=== PATIENT | female | born 1980 | race Caucasian/White ===

== ENCOUNTER 2017-04-20 09:51 | Outpatient (RCR) | payer OTHER ==
[~2017-04-20 09:51] MED LIST: ALPR.25T PO; AMOX500C2 PO; ATEN50TA PO; ATRV10T PO; FAMO20TA5 PO; FLC150T PO; HYDR1TAB75 PO; IBP800T PO; LISI1TAB6 PO; LISI20TA PO; LOVA20TA2 PO; MTF500T PO; OMEP-10 PO; OMG1KC PO; ONDA8TAB13 PO; OXYC-272 PO; PHEN200T27 PO; PNT40TEC PO; PREN1TAB14 PO; SULF-222 PO; TRAM50TA2 PO
[2017-04-20] MEDS ORDERED: BETAMETHASONE ACE/NA PHOS 6 MG/ML (CELESTONE SOLUSPAN) ONE (10:06)
[2017-04-20 10:13] VITALS: BP 140/89
[2017-04-20] MEDS ORDERED: BETAMETHASONE ACE/NA PHOS 6 MG/ML (CELESTONE SOLUSPAN) IM SCH (10:30)
[2017-04-20] MEDS ORDERED: METH250T PO (10:32)
[2017-04-20] MEDS ORDERED: PREN1TAB86 PO (10:32)
[2017-04-20] MEDS ORDERED: FOLI1TAB24 PO (10:32)
[2017-04-21] MEDS ORDERED: BETAMETHASONE ACE/NA PHOS 6 MG/ML (CELESTONE SOLUSPAN) IM NR (12:43)
[2017-04-21] MEDS ORDERED: BETAMETHASONE ACE/NA PHOS 6 MG/ML (CELESTONE SOLUSPAN) ONE (12:47)
== END 2017-04-21 13:05 | disposition home or self-care (01) ==
LOC: WSo 09:51
PROVIDERS: ATTEND Obstetrics & Gynecology
DX: O60.00 Preterm labor without delivery, unspecified trimester (principal); O30.049 Twin pregnancy, dichorionic/diamniotic, unspecified trimester
CPT/HCPCS: 96372

== ENCOUNTER → 2017-04-27 | Outpatient (CLI) | payer OTHER ==
[~2017-04-27] MED LIST changes: +DOCU100C37 PO; +FOLI1TAB24 PO; +IBUP-1780 PO; +METH250T PO; +OXYC-465 PO; +PREN1TAB86 PO
[2017-04-27 11:52] LABS: PROTEIN/CREATININE RATIO 0.33
== END ==
LOC: MERGE 11:30 → LABNPT 11:30
PROVIDERS: ATTEND Obstetrics & Gynecology
DX: O28.8 Other abnormal findings on antenatal screening of mother (principal)
CPT/HCPCS: 82570; 84156

== ENCOUNTER → 2017-04-30 | Outpatient (CLI) | payer OTHER, MEDICAID ==
[2017-04-30 10:40] LABS: PROTEIN/CREATININE RATIO 0.41
== END ==
LOC: LABNPT 10:18
PROVIDERS: ATTEND Obstetrics & Gynecology
DX: O28.8 Other abnormal findings on antenatal screening of mother (principal)
CPT/HCPCS: 82570; 84156

== ENCOUNTER 2017-05-04 10:25 | Inpatient (IN) | payer OTHER ==
[2017-05-04] VITALS (49 sets, daily range): BP systolic 126–199; BP diastolic 72–113
[~2017-05-04] VITALS: Ht 162.6 cm; Wt 96.6 kg
[~2017-05-04 10:25] MED LIST changes: -DOCU100C37 PO; -IBUP-1780 PO; -OXYC-465 PO
--- OUTSIDE RECORDS SUMMARY | 2017-05-04 10:39 | XMS REPORT | Continuity of Care Document ---
Author Author [facility] Organization [facility] Address Unknown Phone Unavailable Allergies Active Description Code Type Severity Reaction Onset Reported/Identified Relationship to Patient Clinical Status Yes No Known Drug Allergies [id number] Drug Allergy Unknown N/ A 05/14/2008 Medications Problems Date Dx Coded Attending Type Code Diagnosis Diagnosed By 09/20/1304 MICAH ZIMMERMAN MD, Ot O30.049 TWIN , DICHORIONIC/ DIAMNIOTIC, 09/20/1304 MICAH ZIMMERMAN MD, Ot O60.00 LABOR WITHOUT DELIVERY, UNSPECIF 05/28/2014 BOBBI VELASQUEZ Ot 599.0 URIN TRACT INFECTION NOS 05/28/2014 BOBBI VELASQUEZ Ot 787.01 NAUSEA WITH VOMITING 05/28/2014 BOBBI VELASQUEZ Ot 789.09 ABDOMINAL PAIN, OTHER SPECIFIED SITE 02/12/2015 MICAH ZIMMERMAN MD Ot 617.2 TUBAL ENDOMETRIOSIS 02/12/2015 MICAH ZIMMERMAN MD Ot 620.8 02/12/2015 MICAH ZIMMERMAN MD Ot 621.0 POLYP OF CORPUS UTERI 02/12/2015 MICAH ZIMMERMAN MD Ot 626.8 MENSTRUAL DISORDER NEC 04/09/2015 MICAH ZIMMERMAN MD Ot 285.9 04/09/2015 MICAH ZIMMERMAN MD Ot 625.8 04/09/2015 MICAH ZIMMERMAN MD, Ot V72.63 04/09/2015 MICAH ZIMMERMAN MD, Ot V74.8 06/10/2015 MICAH ZIMMERMAN MD Ot 285.9 06/10/2015 MICAH ZIMMERMAN MD Ot 625.8 06/10/2015 MICAH ZIMMERMAN MD, Ot V72.63 06/10/2015 MICAH ZIMMERMAN MD Ot V74.8 10/15/2015 BRUNA PETERSON, AMANUEL Ramos Ot J06.9 ACUTE UPPER RESPIRATORY INFECTION, UNSPE 10/15/2015 BRUNA PETERSON, AMANUEL Ramos Ot R50.9 FEVER, UNSPECIFIED 10/15/2015 ELSIE PETERSON, MICAH Mcpherson Ot 285.9 10/15/2015 MICAH ZIMMERMAN MD Ot 625.8 10/15/2015 MICAH ZIMMERMAN MD Ot V72.63 10/15/2015 MICAH ZIMMERMAN MD Ot V74.8 10/15/2015 MICAH ZIMMERMAN MD Ot 285.9 10/15/2015 MICAH ZIMMERMAN MD Ot 625.8 10/15/2015 MICAH ZIMMERMAN MD Ot V72.63 10/15/2015 MICAH ZIMMERMAN MD Ot V74.8 04/20/2017 MICAH ZIMMERMAN MD Ot 285.9 ANEMIA NOS 04/20/2017 MICAH ZIMMERMAN MD Ot 625.8 FEM GENITAL SYMPTOMS NEC 04/20/2017 MICAH ZIMMERMAN MD Ot V72.63 PRE-PROCEDURAL LABORATORY EXAMINATION 04/20/2017 MICAH ZIMMERMAN MD Ot V74.8 SCREEN-BACTERIAL DIS NEC 05/01/2017 MICAH ZIMMERMAN MD Ot O28.8 OTHER ABNORMAL FINDINGS ON SCR Procedures Results Test Result Range Urine protein/creatinine mass ratio - 04/30/17 10:00 Urine protein measurement (mass/volume) 34 mg/dL 6-12 Urine creatinine measurement (mass/volume) 82 mg/dL 30-125 Urine protein/creatinine mass ratio 0.41 NRG Encounters ACCT No. Visit Date/Time Discharge Status Pt. Type Provider Facility Loc./Unit Complaint [id number] 04/20/2017 09:51:00 2016 13:05:00 DIS Outpatient MICAH ZIMMERMAN MD [facility] WSo TWINS PTL [id number] 10/15/2015 12:44:00 2014 13:50:00 DIS Emergency AMANUEL MCFARLAND MD [facility] ER FEVER [id number] 02/12/2015 11:40:00 2014 17:25:00 DIS [facility] [id number] 02/05/2015 09:09:00 2014 23:59:59 CLS Outpatient MICAH ZIMMERMAN MD [facility] PREOP PELVIC MASS [id number] 05/27/2014 19:45:00 2013 00:06:00 DIS Emergency BOBBI VELASQUEZ [facility] ER VOMITING,DIARRHEA [id number] 04/30/2017 14:14:00 Document Registration [id number] 04/30/2017 10:18:00 ACT Outpatient MICAH ZIMMERMAN MD [facility] LABNPT OTHER ABNORMAL FINDINGS ON SCREENING
[2017-05-04] MEDS ORDERED: D5 LR IV SOLUTION 1,000 ML IV SCH (10:40)
[2017-05-04] MEDS ORDERED: AMPICILLIN INJECTION 2,000 MG in NS (IVPB) 50 ML IV SCH (10:40)
[2017-05-04 11:15] LABS: BASOPHILS % (AUTO) 1 % (0-10); EOSINOPHILS # (AUTO) 0.1 10^3/uL (0.0-0.3); EOSINOPHILS % (AUTO) 2 % (0-10); LYMPHOCYTES # (AUTO) 1.4 X 10^3 (1.0-4.0); LYMPHOCYTES % (AUTO) 22 % (12-44); MEAN CORPUSCULAR HEMOGLOBIN 24 PG (25-34); MEAN CORPUSCULAR HGB CONC 31 G/DL (32-36); MEAN CORPUSCULAR VOLUME 78 FL (80-99); MEAN PLATELET VOLUME 11.3 FL (7.4-10.4); MONOCYTES # (AUTO) 0.4 X 10^3 (0.0-1.0); MONOCYTES % (AUTO) 6 % (0-12); NEUTROPHILS # (AUTO) 4.5 X 10^3 (1.8-7.8); NEUTROPHILS % (AUTO) 70 % (42-75); PLATELET COUNT 234 10^3/uL (130-400); RED BLOOD COUNT 4.09 10^6/uL (4.35-5.85); RED CELL DISTRIBUTION WIDTH 15.1 % (10.0-14.5); WHITE BLOOD COUNT 6.4 10^3/uL (4.3-11.0)
[2017-05-04 11:54] LABS: ALANINE AMINOTRANSFERASE 15 U/L (0-55); ALBUMIN 3.1 GM/DL (3.2-4.5); ANION GAP 11 MMOL/L (5-14); ASPARTATE AMINO TRANSFERASE 14 U/L (5-34); BILIRUBIN,TOTAL 0.3 MG/DL (0.1-1.0); BLOOD UREA NITROGEN 6 MG/DL (7-18); BUN/CREATININE RATIO 10; CALCIUM 8.5 MG/DL (8.5-10.1); CARBON DIOXIDE 18 MMOL/L (21-32); CHLORIDE 105 MMOL/L (98-107); CREATININE SERUM 0.61 MG/DL (0.60-1.30); GFR ESTIMATED > 60; GLUCOSE 132 MG/DL (70-105); POTASSIUM 3.7 MMOL/L (3.6-5.0); SODIUM 134 MMOL/L (135-145); TOTAL PROTEIN 6.4 GM/DL (6.4-8.2); URIC ACID 6.2 MG/DL (2.6-7.2)
[2017-05-04] MEDS ORDERED: SUFENTA 0.6MCG/ML BUPIVA 0.125 100 ML ONE (13:09)
[2017-05-04] MEDS ORDERED: BUPIVACAINE 0.25% 30 ML (SENSORCAINE) VIAL ONE (13:29)
[2017-05-04] MEDS ORDERED: fentaNYL INJECTION 100 MCG/2 ML AMP ONE (13:29)
[2017-05-04] MEDS ORDERED: CATHETER FLUSH 10 ML SYR IV SCH (14:00)
[2017-05-04] MEDS ORDERED: OXYTOCIN/NORMAL SALINE 500 ML IV SCH ×2 (14:34→15:48)
[2017-05-04] MEDS ORDERED: AMPICILLIN INJECTION 1,000 MG in NS (IVPB) 50 ML IV SCH (14:45)
--- NOTE | 2017-05-04 15:46 | History & Physical ---
History and Physical Date Seen by Provider: May 04, 2017 Time Seen by Provider: 15:47 Di/Di twin gestation at 34-5/7 week gestation. Been followed for high blood pressure and today her blood pressure 165/105 with 1+ proteinuria. Urine protein creatinine ratio was 1.0. At labor and delivery her blood pressures have been persistent at the 160s although having put her now at bed rest her blood pressures have come down 150.. Patient was found to be isabel and was 3 cm dilated. She has continued to contract and after admission and has continued to contract and with increased bigger to the point where she was asking thousand for pain. This is complicated by gestational diabetes that has been Controlled with metformin. she has been on Aldomet for her elevated blood blood pressures throughout as well. Patient was sent to labor and delivery from my clinic. After receipt of the labs and seeing that her blood pressure was elevated and decision made to go ahead with facilitating delivery however she was found also now to be in labor her cervix progressed to 7 cm. She had does now have an epidural. She was started on ampicillin for GBS prophylaxis. Surgery iatrogenically anesthesia is aware of a potential vaginal delivery of twins. Plan for delivery in the operating room with a double set up. allergies are none Medications include Aldomet 250 twice a day Metformin 500 twice a day Folic acid Atarax when necessary for restless leg vitamins Past medical history, past surgical history, obstetric history, family history, and social histories are per the antepartum record HEENT exam is normal Neck is supple without lymphadenopathy no thyromegaly Abdomen is gravid soft nontender nondistended the fundal height has been over 50 cm secondary to the twins. Extremities show no clubbing or cyanosis however there is fairly notable pretibial pitting edema. Patient DTRs are somewhat elevated over her baseline at 3 over 4 pelvic exam in clinic showed a cervix almost 3 cm dilated and 70 percent effaced. - Von probably half hour to 45 minutes ago was 3-1/2 cm and 70 rate percent effaced - most recent exam in the last 10 minutes was 7 cm 100 percent with a bulging bag it was ruptured releasing clear amniotic fluid. The presenting part was vertex. On ultrasound this week both fetuses were vertex monitor shows contractions every 2-3 minutes. heart rates are normal for both fetuses Laboratory Tests 05/04/17 10:57 Laboratory Tests Test 05/04/17 10:40 05/04/17 10:57 7/14/17 14:06 Range/Units Urine Protein 142 H 6-12 MG/DL Urine Creatinine 142 H 30-125 MG/DL Urine Protein/Creatinine Ratio 1.00 White Blood Count 6.4 4.3-11.0 10^3/uL Red Blood Count 4.09 L 4.35-5.85 10^6/uL Hemoglobin 9.9 L 11.5-16.0 G/DL Hematocrit 32 L 35-52 % Mean Corpuscular Volume 78 L 80-99 FL Mean Corpuscular Hemoglobin 24 L 25-34 PG Mean Corpuscular Hemoglobin Concent 31 L 32-36 G/DL Red Cell Distribution Width 15.1 H 10.0-14.5 % Platelet Count 234 130-400 10^3/uL Mean Platelet Volume 11.3 H 7.4-10.4 FL Neutrophils (%) (Auto) 70 42-75 % Lymphocytes (%) (Auto) 22 12-44 % Monocytes (%) (Auto) 6 0-12 % Eosinophils (%) (Auto) 2 0-10 % Basophils (%) (Auto) 1 0-10 % Neutrophils # (Auto) 4.5 1.8-7.8 X 10^3 Lymphocytes # (Auto) 1.4 1.0-4.0 X 10^3 Monocytes # (Auto) 0.4 0.0-1.0 X 10^3 Eosinophils # (Auto) 0.1 0.0-0.3 10^3/uL Basophils # (Auto) 0.0 0.0-0.1 10^3/uL Sodium Level 134 L 135-145 MMOL/L Potassium Level 3.7 3.6-5.0 MMOL/L Chloride Level 105 98-107 MMOL/L Carbon Dioxide Level 18 L 21-32 MMOL/L Anion Gap 11 5-14 MMOL/L Blood Urea Nitrogen 6 L 7-18 MG/DL Creatinine 0.61 0.60-1.30 MG/DL Estimat Glomerular Filtration Rate > 60 BUN/Creatinine Ratio 10 Glucose Level 132 H 70-105 MG/DL Uric Acid 6.2 2.6-7.2 MG/DL Calcium Level 8.5 8.5-10.1 MG/DL Total Bilirubin 0.3 0.1-1.0 MG/DL Aspartate Amino Transf (AST/SGOT) 14 5-34 U/L Alanine Aminotransferase (ALT/SGPT) 15 0-55 U/L Alkaline Phosphatase 169 H 40-136 U/L Lactate Dehydrogenase 168 125-220 U/L Total Protein 6.4 6.4-8.2 GM/DL Albumin 3.1 L 3.2-4.5 GM/DL Glucometer 96 70-110 MG/DL Assessment and plan 34-5/7 weeks gestation in active labor now being augmented with Pitocin Gestational diabetes on metformin - last blood sugar was 96 PIH now with superimposed preeclampsia with blood levels that the severe level labor Dichorionic diamniotic twins Patient was admitted and started on silicone for GBS prophylaxis secondary to prematurity with no recent GBS culture result. GBS culture was obtained in my clinic and is pending on this date. Patient has been allowed an epidural for pain management Blood sugars are checked hourly and have been appropriate Patient is being allowed trial of labor she has had 2 vaginal deliveries previously anticipation is for vaginal delivery. Both twins were found to be vertex on ultrasound 4 days ago. Delivery will be accomplished in the operating room under double setup with saw superintendent anesthesia and surgery available twin with PIH/superimposed preeclampsia/gestational diabetes/ labor Allergies and Home Medications Allergies Coded Allergies: No Known Drug Allergies (Verified , 05/14/08) Home Medications Folic Acid 1 Mg Tablet, 1 MG PO DAILY, (Reported) Metformin Hcl 500 Mg Tablet, 500 MG PO BID, (Reported) Methyldopa 250 Mg Tablet, 250 MG PO BID, (Reported) Vit W-Ca,Fe,FA(<1 mg) 1 Each Tablet, 1 EACH PO DAILY, (Reported) MICAH ZIMMERMAN MD May 04, 2017 3:46 pm
[2017-05-04] MEDS ORDERED: ONDANSETRON 4 MG/2 ML (SDV) Z0FRAN IVP PRN (16:00)
[2017-05-04] MEDS ORDERED: BENZOCAINE/MENTHOL (DERMOPLAST) 56 ML CAN TP PRN (16:00)
[2017-05-04] MEDS ORDERED: oxyCODONE/APAP 10/325MG (PERCOCET 10) TABLET PO PRN (16:00)
[2017-05-04] MEDS ORDERED: KETOROLAC 30 MG/ML VIAL IV SCH (16:00)
[2017-05-04] MEDS ORDERED: TETANUS,DIPTH,PERTUSS P/F (BOOSTRIX) 0.5 ML VIAL IM ONE (16:00)
[2017-05-04] MEDS ORDERED: MEASLES,MUMPS,RUBELLA 1 EA INJ SC ONE (16:00)
[2017-05-04] MEDS ORDERED: LIDOCAINE/EPI 1%-1:200,000 (XYLOCAINE) 30 ML VIAL ONE (16:09)
[2017-05-04] MEDS ORDERED: LACTATED RINGERS 1,000 ML IV ONE ×2 (17:40)
[2017-05-04] MEDS ORDERED: ONDANSETRON 4 MG/2 ML (SDV) Z0FRAN IV PRN (17:45)
[2017-05-04] MEDS ORDERED: NALOXONE 0.4 MG/ML 1 ML (NARCAN) VIAL IV PRN (17:45)
[2017-05-04] MEDS ORDERED: EPIDURAL (SUFENTA 0.6MCG/ML BUPIVA 0.125%) 100 ML BAG EPI PRN (17:45)
[2017-05-05 04:46] VITALS: BP 148/98
[2017-05-05] MEDS ORDERED: IBUPROFEN 800 MG (MOTRIN) TAB PO ONE ×2 (05:04→09:43)
[2017-05-05] MEDS: IBUPROFEN 800 MG (MOTRIN) TAB PO SCH ×3 (05:15→20:19)
--- NOTE | 2017-05-05 09:19 | Progress Note-Standard ---
Standard Progress Note Progress Notes/Assess & Plan Date Seen by Provider: May 05, 2017 Time Seen by Provider: 09:18 Progress/Assessment & Plan this patient is without complaint. She is ambulating, voiding, tolerating by mouth well, has good pain control. Vital Signs Date Time Temp Pulse Resp B/P (MAP) Pulse Ox O2 Delivery O2 Flow Rate FiO2 05/05/17 04:46 98.4 78 16 148/98 97 Room Air 05/04/17 23:00 98.4 84 18 137/87 98 Room Air 05/04/17 22:40 83 18 139/90 Room Air 05/04/17 21:55 72 18 144/100 Room Air 05/04/17 21:40 74 18 139/92 Room Air 05/04/17 21:20 98.8 65 18 156/94 Room Air 05/04/17 21:00 78 18 132/85 Room Air 05/04/17 20:40 71 18 151/85 Room Air 05/04/17 20:24 76 18 143/95 Room Air 05/04/17 20:09 69 18 154/98 Room Air 05/04/17 19:54 98.2 71 18 147/96 Room Air 05/04/17 19:40 70 18 139/92 Room Air 05/04/17 18:59 110 22 166/92 Room Air 05/04/17 18:42 100 22 199/109 Room Air 05/04/17 18:30 87 22 182/106 98 Room Air 05/04/17 18:15 88 22 167/108 97 Room Air 05/04/17 18:00 110 18 137/89 100 Room Air 05/04/17 17:45 98.6 70 18 162/102 100 Non Rebreather 15.00 05/04/17 17:30 82 18 172/113 100 Non Rebreather 15.00 05/04/17 17:15 67 18 161/103 100 Non Rebreather 15.00 05/04/17 17:00 98.0 70 18 149/113 100 Non Rebreather 15.00 05/04/17 16:45 73 18 142/112 99 Room Air 05/04/17 16:30 72 18 162/111 98 Room Air 05/04/17 16:15 72 18 165/111 98 Room Air 05/04/17 16:00 81 18 161/97 98 Room Air 05/04/17 15:45 78 18 167/98 99 Room Air 05/04/17 15:30 71 18 150/84 98 Room Air 05/04/17 15:15 97.1 81 18 167/100 99 Room Air 05/04/17 14:59 67 18 136/86 97 Room Air 05/04/17 14:53 71 18 130/81 97 Room Air 05/04/17 14:47 71 18 126/72 98 Room Air 05/04/17 14:43 76 18 142/90 98 Room Air 05/04/17 14:38 68 18 138/92 98 Room Air 05/04/17 14:32 69 18 137/92 98 Room Air 05/04/17 14:28 74 18 157/98 99 Room Air 05/04/17 14:22 62 18 152/98 98 Room Air 05/04/17 14:18 81 18 139/89 98 Room Air 05/04/17 14:14 71 18 140/90 97 Room Air 05/04/17 14:08 73 18 144/94 97 Room Air 05/04/17 14:02 72 18 145/89 97 Room Air 05/04/17 13:59 77 18 150/87 98 Room Air 05/04/17 13:52 86 18 142/93 97 Room Air 05/04/17 13:47 71 18 152/98 99 Room Air 05/04/17 13:43 71 18 152/95 97 Room Air 05/04/17 13:38 82 18 181/109 99 Room Air 05/04/17 13:27 97.8 05/04/17 12:45 78 18 138/81 05/04/17 12:14 75 18 137/82 05/04/17 12:04 75 18 148/78 05/04/17 11:31 84 18 161/101 05/04/17 10:52 75 18 161/91 I & O 05/05/17 07:00 Intake Total 1800 ml Balance 1800 ml vital signs are stable. Patient is afebrile. Blood pressures are improving. The abdomen is benign. Fundus is firm below the umbilicus and nontender. Extremities show no clubbing or cyanosis. There is no Homans sign. There is some pretibial pitting edema that is normal. Assessment and plan day number 1 status post spontaneous vaginal delivery plans. Patient is doing well and will have routine convalescence care today MICAH ZIMMERMAN MD May 05, 2017 9:19 am
[2017-05-05] MEDS ORDERED: OXYC-465 PO (09:20)
[2017-05-05] MEDS ORDERED: DOCU100C37 PO (09:20)
[2017-05-05] MEDS ORDERED: IBUP-1780 PO (09:20)
--- NOTE | 2017-05-05 09:21 | Discharge Instructions ---
Discharge Instructions Discharge Medications New, Converted or Re-Newed RX: RX on Chart Patient Instructions Patient Instructions: as directed Return to The Hospital For: as directed Activity & Diet Discharge Diet: No Restrictions Activity as Tolerated: No Orders-Post D/C & Referrals Follow Up Appt: Call to make follow up appt. for patient in 4 weeks. Activity Per routine post vaginal delivery instructions. Please call in RX to patient pharmacy. Diet as tolerated Patient may shower or tub bathe as desired. MICAH ZIMMERMAN MD May 05, 2017 9:21 am
[2017-05-05 09:50] VITALS: BP 144/94
[2017-05-05] MEDS: DOCUSATE SODIUM 100 MG (COLACE) CAP PO SCH ×2 (09:58→20:19)
--- NOTE | 2017-05-05 12:13 | Anesthesia-Regional Post-Op ---
Regional Patient Condition Mental Status: Alert, Oriented x3 Circulation: Same as Pre-Op Headache: Absent Sensation: Full Recovery Motor Block: Absent Post Op Complications Complications None Follow Up Care/Instructions Patient Instructions None needed. Anesthesia/Patient Condition Patient is doing well, no complaints, stable vital signs, no apparent adverse anesthesia problems. No complications reported per nursing. SHEREE STALLWORTH CRNA May 05, 2017 12:13
[2017-05-05 14:15] VITALS: BP 141/85
[2017-05-05 20:00] VITALS: BP 157/100
[2017-05-06] MEDS: IBUPROFEN 800 MG (MOTRIN) TAB PO SCH ×3 (02:20→15:08)
[2017-05-06 05:30] VITALS: BP 124/85
[2017-05-06] MEDS: DOCUSATE SODIUM 100 MG (COLACE) CAP PO SCH (08:27)
[2017-05-06 08:30] VITALS: BP 157/100
--- NOTE | 2017-05-06 09:24 | Progress Note-Standard ---
Standard Progress Note Progress Notes/Assess & Plan Date Seen by Provider: May 06, 2017 Time Seen by Provider: 09:22 Progress/Assessment & Plan this patient is without complaint. She is ambulating, voiding, tolerating by mouth well, has good pain control. Vital Signs Date Time Temp Pulse Resp B/P (MAP) Pulse Ox O2 Delivery O2 Flow Rate FiO2 05/05/17 04:46 98.4 78 16 148/98 97 Room Air 05/04/17 23:00 98.4 84 18 137/87 98 Room Air 05/04/17 22:40 83 18 139/90 Room Air 05/04/17 21:55 72 18 144/100 Room Air 05/04/17 21:40 74 18 139/92 Room Air 05/04/17 21:20 98.8 65 18 156/94 Room Air 05/04/17 21:00 78 18 132/85 Room Air 05/04/17 20:40 71 18 151/85 Room Air 05/04/17 20:24 76 18 143/95 Room Air 05/04/17 20:09 69 18 154/98 Room Air 05/04/17 19:54 98.2 71 18 147/96 Room Air 05/04/17 19:40 70 18 139/92 Room Air 05/04/17 18:59 110 22 166/92 Room Air 05/04/17 18:42 100 22 199/109 Room Air 05/04/17 18:30 87 22 182/106 98 Room Air 05/04/17 18:15 88 22 167/108 97 Room Air 05/04/17 18:00 110 18 137/89 100 Room Air 05/04/17 17:45 98.6 70 18 162/102 100 Non Rebreather 15.00 05/04/17 17:30 82 18 172/113 100 Non Rebreather 15.00 05/04/17 17:15 67 18 161/103 100 Non Rebreather 15.00 05/04/17 17:00 98.0 70 18 149/113 100 Non Rebreather 15.00 05/04/17 16:45 73 18 142/112 99 Room Air 05/04/17 16:30 72 18 162/111 98 Room Air 05/04/17 16:15 72 18 165/111 98 Room Air 05/04/17 16:00 81 18 161/97 98 Room Air 05/04/17 15:45 78 18 167/98 99 Room Air 05/04/17 15:30 71 18 150/84 98 Room Air 05/04/17 15:15 97.1 81 18 167/100 99 Room Air 05/04/17 14:59 67 18 136/86 97 Room Air 05/04/17 14:53 71 18 130/81 97 Room Air 05/04/17 14:47 71 18 126/72 98 Room Air 05/04/17 14:43 76 18 142/90 98 Room Air 05/04/17 14:38 68 18 138/92 98 Room Air 05/04/17 14:32 69 18 137/92 98 Room Air 05/04/17 14:28 74 18 157/98 99 Room Air 05/04/17 14:22 62 18 152/98 98 Room Air 05/04/17 14:18 81 18 139/89 98 Room Air 05/04/17 14:14 71 18 140/90 97 Room Air 05/04/17 14:08 73 18 144/94 97 Room Air 05/04/17 14:02 72 18 145/89 97 Room Air 05/04/17 13:59 77 18 150/87 98 Room Air 05/04/17 13:52 86 18 142/93 97 Room Air 05/04/17 13:47 71 18 152/98 99 Room Air 05/04/17 13:43 71 18 152/95 97 Room Air 05/04/17 13:38 82 18 181/109 99 Room Air 05/04/17 13:27 97.8 05/04/17 12:45 78 18 138/81 05/04/17 12:14 75 18 137/82 05/04/17 12:04 75 18 148/78 05/04/17 11:31 84 18 161/101 05/04/17 10:52 75 18 161/91 I & O 05/05/17 07:00 Intake Total 1800 ml Balance 1800 ml vital signs are stable. Patient is afebrile. Blood pressures are improving. The abdomen is benign. Fundus is firm below the umbilicus and nontender. Extremities show no clubbing or cyanosis. There is no Homans sign. There is some pretibial pitting edema that is normal. Assessment and plan day number 1 status post spontaneous vaginal delivery plans. Patient is doing well and will have routine convalescence care today May 06, 2017 Patient is without complaint. She is ambulating, voiding, tolerating by mouth well, has good pain control, denies chest pain, denies shortness of breath, denies nausea vomiting, denies headache, feels ready for discharge home. Vital Signs Date Time Temp Pulse Resp B/P (MAP) Pulse Ox O2 Delivery O2 Flow Rate FiO2 05/06/17 08:30 98.4 83 17 157/100 98 Room Air 05/06/17 05:30 96.9 66 17 124/85 98 Room Air 05/05/17 20:00 97.3 79 17 157/100 98 Room Air 05/05/17 14:15 98.3 68 20 141/85 100 Room Air 05/05/17 09:50 97.4 65 18 144/94 100 Room Air vital signs are stable. Patient is afebrile. Abdomen is benign. Fundus is firm below the umbilicus is nontender. Extremities show no clubbing or cyanosis. There is no Homans sign. Assessment and plan day number 2 status post spontaneous vaginal delivery of twins. Patient had pre-existing hypertension we will resume her previous blood pressure medication. Patient will be discharged home if her baby is not released she will room in. Follow-up will be in clinic. Final Diagnosis vaginal delivery twins at 34 weeks and 5 days MICAH ZIMMERMAN MD May 06, 2017 9:24 am
[2017-05-06] MEDS ORDERED: TETANUS,DIPTH,PERTUSS P/F (BOOSTRIX) 0.5 ML VIAL IM ONE (14:30)
--- NOTE | 2017-05-07 09:52 | PROCEDURE REPORT ---
PROCEDURE PHYSICIAN: MICAH ZIMMERMAN DATE OF PROCEDURE: 05/04/2017 DATE OF DICTATION: 05/04/2017 The patient delivered by spontaneous vaginal delivery of viable female twin infants. Twin A had a weight of 6 pounds 7 ounces, Apgars of 7 and 9 at one and five minutes respectively. Cord blood pH of 7.31 and the time of 190. Twin B had a weight of 6 pounds 3 ounces, Apgars of 6 and 8, time was 1907. Cord blood pH was 7.24. Twin A was delivered vertex by. maternal effort in pushing with contractions. Delivery was accomplished in the OR and under set-up with surgery crew available for emergent as needed. Continuous monitoring was accomplished with external monitor for twin B and internal electrode for twin A. The was delivered from a straight OA position over an intact perineum. The infant was bulb suctioned on delivery of the head and again on completion of delivery. The umbilical cord, when pulseless, was doubly clamped, father cut the cord. The baby was passed to the pediatric nurse in attendance for delivery under the auspices of Dr. Barton. Manual cervical/vaginal exam revealed that the second twin, as had been prior to coming to delivery Room on transabdominal bedside ultrasound was still in a head left transverse lie with the back up. Both hands and one foot were palpable through the cervix. Some manipulation over a period of a minute or two initially both feet were grasped through the membranes and membranes ruptured spontaneously as the two feet were gently with persistent gentle traction were guided down into the vagina. The patient contracted several times during the span of locating, grasping and beginning extraction from a double and breech position. The infant was gradually brought down into the pelvis. The hips coming down and delivering again with gentle traction and now with some maternal expulsive effort. The delivery was completed in the usual manner by breech extraction. Mauriceau Smellie Veit maneuver was employed for delivery of the after coming head. The was dried and stimulated. The umbilical cord was palpated and there was a pulse of slightly over 100 beats a minute palpable. The infant again was dried and stimulated further and began to spontaneous cry. Gradually the pulse in the umbilical cord was lost. The cord was then doubly clamped, father again, cut the cord and this infant was passed again to the pediatric nurse in attendance for delivery under the care of Dr. Barton and his associate. Umbilical cord bloods were obtained and labeled appropriately from cord A and cord B including umbilical artery blood gases as noted. Chord A was then clamped with a plastic umbilical cord clamp for identification by pathology. Shortly the placental mass delivered spontaneously Benjamin. The dividing membrane was still present but both placentas were fairly well fused at the level of the body membranes. Both placentas were battledore. The placentas were sent to pathology for permanent section as well. The vagina was examined and found intact as was the cervix, the perineum and the rectum, except for a 1.5 cm first-degree perineal laceration vertically across the posterior fourchette. This laceration was repaired with a single suture of 2-0 Vicryl under local analgesia using 1% lidocaine with epinephrine infiltrated into the perineum with hypodermic needle. Sponge and needle counts were correct on completion of delivery and the fairly minimal repair. The patient tolerated delivery and repair well and was transferred back to her bed and taken to [facility] for recovery. Both infants were remaining at this point with the mother and father under the attention of the L\T\D pediatric nurse. Sponge and needle counts were correct. Estimated blood loss was between 400 and 500 mL. The patient responded nicely to ecbolic effect of the IV Pitocin after the delivery was complete. Job ID: [id number] Dictated Date: 05/04/2017 22:10:28 Wing Scorer Date: 05/07/2017 09:25:15 / osmin
== END 2017-05-06 15:10 | disposition home or self-care (01) | DRG 775 ==
LOC: LDRP 10:25 → OBSVTOIN 12:18 → LDRP 23:00
PROVIDERS: ADMIT Obstetrics & Gynecology; ATTEND Obstetrics & Gynecology
PROC: 0HQ9XZZ Repair Perineum Skin, External Approach (ICD-10-PCS; principal; 2017-05-04)
PROC: 10E0XZZ Delivery of Products of Conception, External Approach (ICD-10-PCS; 2017-05-04)
DX: O14.04 Mild to moderate pre-eclampsia, complicating childbirth (principal); O24.425 Gestational diabetes mellitus in childbirth, controlled by oral hypoglycemic drugs; O60.14X0 Preterm labor third trimester with preterm delivery third trimester, not applicable or unspecified; O30.043 Twin pregnancy, dichorionic/diamniotic, third trimester; O70.0 First degree perineal laceration during delivery; Z3A.34 34 weeks gestation of pregnancy; Z37.2 Twins, both liveborn; Z23 Encounter for immunization
CPT/HCPCS: 36415; 80053; 82570; 82962; 83615; 84156; 84550; 85025; 86850; 86900; 86901; 87088; 90715